=== PATIENT | female | born 1965 | race Two or more races ===

== ENCOUNTER 2016-09-27 12:25 | Emergency (ER) | payer SELFPAY ==
--- NOTE | ~2016-09-27 | ER ---
PATIENT'S NAME: SHELLY SALAZAR [facility] AGE: 50 Y [address] ROOM: [place] [address] LOCATION: ED ADMIT DATE: 09/27/2016 ER/Outpatient Report DISCHARGE DATE: 09/27/2016 FAMILY PHYSICIAN: PHYSICIAN, NO ATTENDING PHYSICIAN: Jc Spain CHIEF COMPLAINT: Right hip and left knee pain. HISTORY OF PRESENT ILLNESS: Ms. Salazar presents for evaluation of right hip and left knee pain. Primarily, it is her left knee pain that is of concern today. She states that about 2 weeks ago, she began developing discomfort in her right hip. From that time, she was getting around okay but began to develop pain in her left knee about a week later, which has been present for the last several days. Today, it felt like it was continuing to get worse, and so she came in for evaluation. She states that she has been taking tramadol with not a lot of relief and has intermittently tried naproxen and ibuprofen with unacceptable results. She denies any recent falls or other concerning symptoms. PAST MEDICAL HISTORY: Documented on the record and reviewed by me. SOCIAL HISTORY: Documented on the record and reviewed by me. MEDICATIONS: Documented on the record and reviewed by me. ALLERGIES: DOCUMENTED ON THE RECORD AND REVIEWED BY ME. REVIEW OF SYSTEMS: All systems reviewed and negative except as noted in the HPI. PHYSICAL EXAMINATION: VITAL SIGNS: Blood pressure 154/59, pulse 72, respiratory rate 16, temperature 97.9, and SpO2 is 99% on room air. Pain is mild. GENERAL: Age-appropriate female, sitting on chair in exam room in no apparent pain or distress. NEUROLOGIC: Awake and alert. GCS is 15. No focal deficits. No asymmetry. HEENT: Normocephalic, atraumatic. Eyes are PERRL. Oropharynx clear. NECK: Supple. Trachea is midline. CHEST: Even and unlabored respirations. Heart is regular rate and rhythm. ABDOMEN: Benign to inspection. PATIENT'S NAME: SHELLY SALAZAR [facility] AGE: 50 Y [address] ROOM: [place] [address] LOCATION: ED ADMIT DATE: 09/27/2016 ER/Outpatient Report DISCHARGE DATE: 09/27/2016 FAMILY PHYSICIAN: PHYSICIAN, NO ATTENDING PHYSICIAN: Jc [place] EXTREMITIES: The right hip is unremarkable except for some discomfort with internal rotation. No crepitus or focal tenderness. The left knee is notable for tenderness throughout the medial aspect particularly at the anserine bursa as well as the insertion of the pes anserinus. Adduction of the thigh is quite painful for the patient at the knee. The knee exam itself is benign otherwise. No ligamentous instability, no joint effusions, and no tenderness to palpation otherwise. No erythema or warmth. The remainder of the extremities are unremarkable. SKIN: Appears to be clean, dry, and intact. LABORATORY DATA AND X-RAYS: None. IMPRESSION: Left knee overuse injury secondary to offloading right hip pain. EMERGENCY DEPARTMENT COURSE: The patient was seen and evaluated as above. We, however, stopped all NSAIDs. We will initiate 2-week trial of Mobic and [facility] her [facility] pain. She has a cane at home which she can use to help offload her discomfort. All questions answered. The patient was discharged with instructions to return immediately if worse. MD JESUS CERVANTES/layne /[id number] d: 09/27/16 1908 t: 10/06/16 1001, OUTPATIENT REPORT
== END 2016-09-27 13:15 | disposition disaster alternative care site (69) ==
LOC: GMED 12:25
DX: S89.92XA Unspecified injury of left lower leg, initial encounter (principal); M25.551 Pain in right hip; I10 Essential (primary) hypertension; Z79.891 Long term (current) use of opiate analgesic; X50.0XXA Overexertion from strenuous movement or load, initial encounter